=== PATIENT | female | born 1960 | race Caucasian/White ===

== ENCOUNTER → 2018-03-22 08:41 | Outpatient (CLI) | payer MEDICARE, MEDICAID, SELFPAY | PROVIDERS: Family Provider Internal Medicine; PCP Internal Medicine; Visit Provider Registered Nurse | DX: B37.9 Candidiasis, unspecified (principal); B20 Human immunodeficiency virus [HIV] disease | CPT/HCPCS: 36415; 87040; 87102; 87449 ==

== ENCOUNTER → 2018-06-05 10:57 | Outpatient (CLI) | payer MEDICARE, MEDICAID, SELFPAY ==
[2018-06-05 11:29] LABS: Bacteria Urine None Seen; RBC Urine None Seen (0-5/HPF); WBC Urine None Seen (0-5/HPF)
[2018-06-05 12:16] LABS: Add Manual Diff / Slide Review NO; Appearance Urine UA CLEAR; Basophils Percent Auto 0.9 % (0-2); Bilirubin Urine UA NEGATIVE (NEGATIVE); Color Urine UA YELLOW; Eosinophils Percent Auto 0.4 % (2-4); Glucose Urine UA NEGATIVE (Normal); Hematocrit 46.1 % (36-46); Hemoglobin 15.2 g/dL (12.0-16.0); Ketones Urine UA NEGATIVE (NEGATIVE); Leukocyte Esterase Urine UA NEGATIVE (NEGATIVE); Lymphocytes Percent Auto 33.9 % (25-40); Mean Corpuscular HGB Conc 33.1 % (30-36); Mean Corpuscular Hemoglobin 31.4 PG (26-34); Mean Corpuscular Volume 94.9 fL (80-100); Monocytes Percent Auto 7.7 % (3-14); Neutrophils Absolute Auto 3600 /uL (1500-7000); Neutrophils Percent Auto 57.1 % (50-75); Nitrite Urine UA NEGATIVE (Negative); Occult Blood Urine UA NEGATIVE (Negative); Platelet Count 278 X10^3/uL (150-400); Protein Urine UA NEGATIVE (Negative); Red Blood Cell Count 4.85 X10^6/uL (4.0-5.2); Red Cell Distribution Width 13.7 % (11.6-14.8); Urobilinogen Urine UA 0.2 E.U./dL (0.2); White Blood Cell Count 6.4 X10^3/uL (4.5-11.0); pH Urine UA 6.5 (4.5-8.0)
[2018-06-05 12:59] LABS: Alanine Aminotransferase 22 IU/L (9-52); Albumin Globulin Ratio 1.7 (1.0-2.8); Alkaline Phosphatase 75 U/L (38-126); Aspartate Aminotransferase 27 IU/L (14-36); Bilirubin Total 0.3 mg/dL (0.2-1.3); Blood Urea Nitrogen 11 mg/dL (7-17); Calcium 10.1 mg/dL (8.4-10.2); Carbon Dioxide 21 mmol/L (22-32); Chloride 105 mmol/L (98-107); Estimated Glomerular Filt Rate 56.7 mL/min (>60); Glucose 110 mg/dL (70-100); HEMOLYSIS < 15 (0-50); Sodium 142 mmol/L (137-145)
[2018-06-05 13:42] LABS: Urine N gonorrhoeae NOT DETECTED
[2018-06-05 13:58] LABS: Urine Chlamydia NOT DETECTED
[2018-06-05 14:32] LABS: Hepatitis B Surface Antigen NEGATIVE s/c (NEGATIVE)
[2018-06-05 15:17] LABS: Hep C Virus Ab w/Reflex Quant NEGATIVE s/c (NEGATIVE)
[2018-06-06 14:57] LABS: Hepatitis B Core Antibody Nonreactive (Nonreactive)
[2018-06-07 18:40] LABS: RPR Screen Nonreactive (Nonreactive)
== END ==
PROVIDERS: Family Provider Internal Medicine; PCP Internal Medicine; Visit Provider Internal Medicine Infectious Disease
DX: B37.9 Candidiasis, unspecified (principal); B20 Human immunodeficiency virus [HIV] disease
CPT/HCPCS: 36415; 80053; 81001; 85025; 86360; 86592; 86704; 86708; 86803; 87015; 87045; 87086; 87102; 87340; 87427; 87491; 87536; 87591; 87899

== ENCOUNTER 2018-07-17 10:56 | Emergency (ER) | payer MEDICARE, MEDICAID, SELFPAY ==
[2018-07-17 11:08] VITALS: BP 141/89; PULSE 85; RESP 18; TEMP 37.2; O2SAT 97; BMI 25.8
[2018-07-17 11:30] VITALS: BP 129/99; PULSE 73; RESP 16; O2SAT 95
--- NOTE | 2018-07-17 11:34 | ED.ALLEREA ---
HPI - Allergic Reaction General Chief complaint: Abdominal Pain Stated complaint: DRUG REACTION Time Seen by Provider: 07/17/18 11:20 History of Present Illness HPI narrative: Patient is a 58-year-old female who has history of HIV and presents from multiple complaints. She has had abdominal discomfort diarrhea sometimes bloody but now resolved some nausea. She was recently put on posaconazole oral candidiasis she feels like her symptoms are result of this medication. She says that she is taking a long time to get a diagnosis in to get put on a medication now she feels like she is having a reaction to it. The pharmacist told her to come to the ER. She has not had any bloody stool for 1 week her diarrhea has improved she has no rash no difficulty breathing or talking. She has not had any fever. Related Data Home Medications Medication Instructions Recorded Confirmed darunavir ethanolate [Prezista] 600 mg PO BID #0 01/06/13 07/17/18 methylphenidate HCl [Ritalin] 20 mg PO TID #0 01/06/13 07/17/18 topiramate [Topamax] 100 mg PO BEDTIME #0 05/04/16 07/17/18 dexlansoprazole [Dexilant] 30 mg PO BID #0 09/20/16 07/17/18 diazepam 10 mg PO TID PRN #0 09/20/16 07/17/18 rosuvastatin 10 mg PO DAILY #0 01/17/17 07/17/18 Disabled [address]ing Permit 1 ea MISCELLANEOUS PRN 07/17/18 07/17/18 atenolol 25 - 50 mg PO DAILY 07/17/18 07/17/18 escitalopram oxalate 40 mg PO DAILY 07/17/18 07/17/18 mupirocin 1 applic TOPICAL TID PRN 07/17/18 07/17/18 prazosin 10 mg PO BEDTIME 07/17/18 07/17/18 raltegravir [Isentress] 400 mg PO Q12H 07/17/18 07/17/18 ritonavir [Norvir] 100 mg PO BID 07/17/18 07/17/18 sumatriptan 2 spray INTRANASAL Q2H PRN 07/17/18 07/17/18 Previous Rx's Medication Instructions Recorded fluconazole 200 mg PO DAILY #14 tab 07/17/18 Allergies Allergy/AdvReac Type Severity Reaction Status Date / Time Tetracyclines [TETRACYCLINES] Allergy Severe CRITICAL Verified 07/17/18 11:08 BLOODY DIARRHEA, BLOODY VOMIT morphine [MORPHINE] AdvReac Unknown ITCHING Verified 07/17/18 11:08 Review of Systems Review of Systems ROS Unobtainable: All systems reviewed & are unremarkable except as noted in HPI and below Constitutional Denies chills, Denies fever(s), Denies lethargy and Denies weakness Cardiovascular Denies chest pain, Denies irregular heart rhythm, Denies lightheadedness, Denies palpitations, Denies dyspnea, Denies dyspnea on exertion and Denies orthopnea Respiratory Denies cough, Denies dyspnea, Denies dyspnea on exertion and Denies wheezing Gastrointestinal Gastrointestinal: Reports as per HPI Genitourinary Denies hematuria, Denies flank pain, Denies urinary incontinence and Denies urinary urgency Musculoskeletal Denies back pain, Denies muscle weakness, Denies numbness and Denies tingling Integumentary/Breasts Denies pruritus, Denies erythema, Denies rash and Denies wounds Neurologic Denies confusion, Denies numbness, Denies tingling and Denies weakness Psychiatric Denies anxiety, Denies confusion, Denies depression, Denies homicidal ideation and Denies suicidal ideation Endocrine Denies palpitations Allergic/Immunologic Denies wheezing PFSH Medical History HIV (human immunodeficiency virus infection) (Acute) Hyperlipidemia (Acute) Kidney stones (Acute) Parkinsons (Acute) Splenic artery aneurysm (Acute) Exam Initial Vital Signs Initial Vital Signs: Vital Signs Temperature 98.9 F 07/17/18 11:08 Pulse Rate 85 07/17/18 11:08 Respiratory Rate 18 07/17/18 11:08 Blood Pressure 141/89 H 07/17/18 11:08 Pulse Oximetry 97 07/17/18 11:08 GENERAL: Alert well-appearing anxious female HEENT: Head atraumatic,EOMI, pupils reactive, CARDIOVASCULAR: Regular rate and rhythm without murmurs, rubs or gallops. RESPIRATORY: Breath sounds equal bilaterally, no wheezes rales or rhonchi. ABDOMEN: Soft, nontender. Normoactive bowel sounds all 4 quadrants. No guarding or rebound. : No CVA tenderness EXTREMITIES: Normal range of motion, no clubbing or edema. Neurovascularly intact NEUROLOGICAL: Alert and oriented x4.Normal gait and speech. Cranial nerves II through XII grossly intact. SKIN: Warm, dry, no laceration, no petechiae, no rashes or lesions. Course Orders Ordered: Discontinued Medications Sodium Chloride (Normal Saline 0.9%) 1,000 mls @ 1,000 mls/hr IV CONT KATHARINA Last Infusion: 07/17/18 13:19 Dose: 0 mls/hr Admin: 07/17/18 12:12 Dose: 1,000 mls/hr Vital Signs - 8 hr 07/17/18 11:08 07/17/18 11:30 07/17/18 12:00 Temperature 98.9 F Pulse Rate 85 73 66 Respiratory Rate 18 16 15 Blood Pressure 141/89 H Blood Pressure [Right Arm] 129/99 H 124/83 Pulse Oximetry 97 95 93 07/17/18 12:30 07/17/18 13:00 Temperature Pulse Rate 65 53 L Respiratory Rate 18 13 Blood Pressure Blood Pressure [Right Arm] 103/74 124/89 Pulse Oximetry 96 96 MDM - Allergic Reaction Lab Data Attestation: I reviewed the patient's lab results. Result diagrams: 07/17/18 11:45 07/17/18 11:45 Lab Results 07/17/18 07/17/18 Range/Units 11:45 11:45 WBC 5.1 (4.5-11.0) X10^3/uL RBC 4.54 (4.0-5.2) X10^6/uL Hgb 14.0 (12.0-16.0) g/dL Hct 43.0 (36-46) % MCV 94.8 (80-100) fL MCH 30.8 (26-34) PG MCHC 32.5 (30-36) % RDW 14.4 (11.6-14.8) % Plt Count 252 (150-400) X10^3/uL Neut % (Auto) 63.9 (50-75) % Lymph % (Auto) 27.0 (25-40) % [place] % (Auto) 7.6 (3-14) % Eos % (Auto) 0.5 L (2-4) % Baso % (Auto) 1.0 (0-2) % Neut # (Auto) 3300 (2319-7688) /uL Lymph # (Auto) 1400 (0457-9041) /uL [place] # (Auto) 400 (0-900) /uL Eos # (Auto) 0 (0-450) /uL Baso # (Auto) 0 (0-100) /uL Sodium 138 (137-145) mmol/L Potassium 4.8 (3.4-5.1) mmol/L Chloride 106 (98-107) mmol/L Carbon Dioxide 21 L (22-32) mmol/L BUN 11 (7-17) mg/dL Creatinine 0.90 (0.52-1.04) mg/dL Estimated GFR > 60.0 (>60) mL/min BUN/Creatinine Ratio 12.2 (6-22) Glucose 98 (70-100) mg/dL Calcium 9.8 (8.4-10.2) mg/dL Total Bilirubin 0.7 (0.2-1.3) mg/dL AST 38 H (14-36) IU/L ALT 21 (9-52) IU/L Alkaline Phosphatase 57 (38-126) U/L Total Protein 7.9 (6.3-8.2) g/dL Albumin 4.7 (3.5-5.0) g/dL Globulin 3.2 (1.7-4.1) g/dL Albumin/Globulin Ratio 1.5 (1.0-2.8) Lipase 94 (23-300) U/L MDM Narrative Medical decision making narrative: It is very difficult to say if her bloody diarrhea is a reaction from the medication. She no longer is having bloody diarrhea blood work is within normal limits. She actually does have a sensitivity form of her candidiasis. She was previously on fluconazole it looks as though fluconazole was sensitive. For some reason she was changed this other medication. Patient is demanding a new medication. I will put her back on fluconazole, though I strongly recommended that she follow up with the doctor who started her on the medication. I feel there is some reason that medication switched. Discharge Plan Departure Patient Disposition: Home Clinical Impression: Adverse drug reaction Discharge Date/Time: 07/17/18 13:19 Interventions: ED Discharge Assessment Last Done: 07/17/18 13:19 Instructions: DI for Adverse Drug Reaction-Child Activity Restrictions/Additional Instructions: *You have been diagnosed with drug reaction *What to do: Please speak with your doctor about new medication regarding your yeast infection. There are likely reasons other medications were not started. *Continue to take medications as directed *Follow up with your primary care provider in 2-3 days *Return to ER if you should have any new, worsening or concerning symptoms Prescriptions: New fluconazole 200 mg tablet 200 mg PO DAILY Qty: 14 RF: 0 No Action darunavir ethanolate [Prezista] 600 MG tablet 600 mg PO BID Qty: 0 RF: 0 methylphenidate HCl [Ritalin] 20 MG tablet 20 mg PO TID Qty: 0 RF: 0 topiramate [Topamax] 100 MG tablet 100 mg PO BEDTIME Qty: 0 RF: 0 diazepam 10 MG tablet 10 mg PO TID PRN (Reason: Anxiety) Qty: 0 RF: 0 dexlansoprazole [Dexilant] 30 MG capsule,biphase delayed releas 30 mg PO BID Qty: 0 RF: 0 rosuvastatin 10 MG tablet 10 mg PO DAILY Qty: 0 RF: 0 mupirocin 2 % ointment 1 applic Topical TID PRN (Reason: unknown) RF: 0 atenolol 50 mg tablet 25 - 50 mg PO DAILY RF: 0 escitalopram oxalate 20 mg tablet 40 mg PO DAILY RF: 0 raltegravir [Isentress] 400 mg tablet 400 mg PO Q12H RF: 0 ritonavir [Norvir] 100 mg tablet 100 mg PO BID RF: 0 sumatriptan 5 mg/actuation spray,non-aerosol 2 spray Intranasal Q2H PRN (Reason: Migraine Headache) RF: 0 prazosin 5 mg capsule 10 mg PO BEDTIME RF: 0 Disabled Parking Permit 1 ea miscellaneous PRN RF: 0 Referrals: Jordan Isabel ARNP [Primary Care Provider] -
[2018-07-17 11:52] LABS: Add Manual Diff / Slide Review NO; Basophils Absolute Auto 0 /uL (0-100); Eosinophils Absolute Auto 0 /uL (0-450); Eosinophils Percent Auto 0.5 % (2-4); Lymphocytes Absolute Auto 1400 /uL (1100-4500); Mean Corpuscular HGB Conc 32.5 % (30-36); Mean Corpuscular Hemoglobin 30.8 PG (26-34); Mean Corpuscular Volume 94.8 fL (80-100); Monocytes Absolute Auto 400 /uL (0-900); Monocytes Percent Auto 7.6 % (3-14); Neutrophils Absolute Auto 3300 /uL (1500-7000); Neutrophils Percent Auto 63.9 % (50-75); Platelet Count 252 X10^3/uL (150-400); Red Blood Cell Count 4.54 X10^6/uL (4.0-5.2); Red Cell Distribution Width 14.4 % (11.6-14.8); White Blood Cell Count 5.1 X10^3/uL (4.5-11.0)
[2018-07-17 12:00] VITALS: BP 124/83; PULSE 66; RESP 15; O2SAT 93
[2018-07-17 12:05] LABS: Alanine Aminotransferase 21 IU/L (9-52); Albumin 4.7 g/dL (3.5-5.0); Albumin Globulin Ratio 1.5 (1.0-2.8); Alkaline Phosphatase 57 U/L (38-126); Aspartate Aminotransferase 38 IU/L (14-36); BUN Creatinine Ratio 12.2 (6-22); Bilirubin Total 0.7 mg/dL (0.2-1.3); Blood Urea Nitrogen 11 mg/dL (7-17); Calcium 9.8 mg/dL (8.4-10.2); Carbon Dioxide 21 mmol/L (22-32); Chloride 106 mmol/L (98-107); Estimated Glomerular Filt Rate > 60.0 mL/min (>60); Globulin 3.2 g/dL (1.7-4.1); Glucose 98 mg/dL (70-100); HEMOLYSIS 116 (0-50); Lipase 94 U/L (23-300); Potassium 4.8 mmol/L (3.4-5.1); Sodium 138 mmol/L (137-145); Total Protein 7.9 g/dL (6.3-8.2)
[2018-07-17] MEDS: SODIUM CHLORIDE 0.9% 1,000 ML 1000 ML IV (12:12)
[2018-07-17 12:30] VITALS: BP 103/74; PULSE 65; RESP 18; O2SAT 96
[2018-07-17 13:00] VITALS: BP 124/89; PULSE 53; RESP 13; O2SAT 96
== END 2018-07-17 13:19 | disposition home or self-care (01) ==
PROVIDERS: Emergency Provider Emergency Medicine; Family Provider Registered Nurse; PCP Registered Nurse
DX: T50.905A Adverse effect of unspecified drugs, medicaments and biological substances, initial encounter (principal)
CPT/HCPCS: 36591; 80053; 83690; 85025; 96360; 99283; 99284

== ENCOUNTER 2018-09-25 09:24 | Emergency (ER) | payer MEDICARE, MEDICAID, SELFPAY ==
--- NOTE | 2018-09-25 09:46 | ED.GENADULT ---
HPI - General Adult General Chief complaint: Urogenital-Female Stated complaint: dizziness, off balance, bladder pain, fungal infec Time Seen by Provider: 09/25/18 09:31 Source: patient Mode of arrival: ambulatory Limitations: no limitations History of Present Illness HPI narrative: Patient is a 58-year-old female who is HIV positive. She states that her last viral load was undetectable and her CD4 count was 500. Here for multiple medical problems however the main reason that she is here today is because she has been having pain around her urethra and also fullness in her bladder. She states that she has had urinary tract infections and kidney stones in the past but this is not of those diagnoses. Patient somewhat difficult to obtain a history from however after multiple questioning it does appear that she is here specifically because of the irritation around the urethra and bladder fullness. Related Data Home Medications Medication Instructions Recorded Confirmed darunavir ethanolate [Prezista] 600 mg PO BID #0 01/06/13 07/17/18 methylphenidate HCl [Ritalin] 20 mg PO TID #0 01/06/13 07/17/18 topiramate [Topamax] 100 mg PO BEDTIME #0 05/04/16 07/17/18 dexlansoprazole [Dexilant] 30 mg PO BID #0 09/20/16 07/17/18 diazepam 10 mg PO TID PRN #0 09/20/16 07/17/18 rosuvastatin 10 mg PO DAILY #0 01/17/17 07/17/18 Disabled Parking Permit 1 ea MISCELLANEOUS PRN 07/17/18 07/17/18 atenolol 25 - 50 mg PO DAILY 07/17/18 07/17/18 escitalopram oxalate 40 mg PO DAILY 07/17/18 07/17/18 mupirocin 1 applic TOPICAL TID PRN 07/17/18 07/17/18 prazosin 10 mg PO BEDTIME 07/17/18 07/17/18 raltegravir [Isentress] 400 mg PO Q12H 07/17/18 07/17/18 ritonavir [Norvir] 100 mg PO BID 07/17/18 07/17/18 sumatriptan 2 spray INTRANASAL Q2H PRN 07/17/18 07/17/18 Previous Rx's Medication Instructions Recorded fluconazole 200 mg PO DAILY #14 tab 07/17/18 lidocaine 1 applictn TOP BID-QID PRN #30 gram 09/25/18 Allergies Allergy/AdvReac Type Severity Reaction Status Date / Time Tetracyclines [TETRACYCLINES] Allergy Severe CRITICAL Verified 07/17/18 11:08 BLOODY DIARRHEA, BLOODY VOMIT morphine [MORPHINE] AdvReac Unknown ITCHING Verified 07/17/18 11:08 Review of Systems Constitutional Denies fever(s) Genitourinary Denies urinary frequency, Denies difficulty voiding, Reports dysuria, Denies urinary incontinence, Denies urinary hesitancy and Denies urinary urgency Comments: Urethral irritation Bladder fullness, Musculoskeletal Denies myalgias and Denies arthralgias Integumentary/Breasts Denies rash Allergic/Immunologic Denies urticaria [facility] Medical History HIV (human immunodeficiency virus infection) (Acute) Hyperlipidemia (Acute) Kidney stones (Acute) Parkinsons (Acute) Splenic artery aneurysm (Acute) Social History Smoking Status: Never smoker Social History Smoking Status: Never smoker Exam Initial Vital Signs Initial Vital Signs: Vital Signs Temperature 98.0 F 09/25/18 09:53 Pulse Rate 91 H 09/25/18 09:53 Respiratory Rate 20 09/25/18 09:53 Blood Pressure 122/72 09/25/18 09:53 Pulse Oximetry 97 09/25/18 09:53 Const General: cooperative, well developed, well groomed and No acute distress Orientation: alert, awake and oriented x3 Resp Effort & Inspection: normal respiratory effort Other: Normal external female genitalia No redness around the area. Does have what appears to be a bladder prolapse. No redness around the urethral opening. Skin Lesions: no lesions Rashes: no rashes Wounds: no wounds Neuro General: alert, awake and oriented x3 Gait: normal gait Extrem General: capillary refill normal Psych Appearance: grossly normal and well kempt Course Vital Signs - 8 hr 09/25/18 09:53 09/25/18 10:49 Temperature 98.0 F Pulse Rate 91 H 68 Respiratory Rate 20 16 Blood Pressure 122/72 Blood Pressure [Right Arm] 106/62 Pulse Oximetry 97 99 Medical Decision Making MDM Narrative Medical decision making narrative: Patient states that her symptoms today are not the result of a urinary tract infection or kidney stone because she has had these before and this does not feel like that. I do believe that the fullness in her bladder in the irritation or secondary to her bladder prolapse which is seen on the exam. Informed her that she needed to contact her primary care doctor to discuss referral to see gynecology. Will send home with lidocaine jelly. She states that she has used this in the past and has helped. No indication for antibiotics or antifungal medications. Patient was given return precautions. She expressed understanding and agreement with plan. Discharge Plan Departure Patient Disposition: Home Clinical Impression: Bladder prolapse Instructions: Cystocele/Rectocele Activity Restrictions/Additional Instructions: I recommend that you may contact with her new primary care doctor and discuss the indications for referral to see gynecology for what I feel like is a bladder prolapse. Until then you can use the lidocaine jelly as needed. Continue all of her other medications. Return to the emergency department for any new or worsening symptoms Prescriptions: New lidocaine 5 % ointment 1 applictn TOP BID-QID PRN (Reason: skin irritation) Qty: 30 RF: 0 No Action darunavir ethanolate [Prezista] 600 MG tablet 600 mg PO BID Qty: 0 RF: 0 methylphenidate HCl [Ritalin] 20 MG tablet 20 mg PO TID Qty: 0 RF: 0 topiramate [Topamax] 100 MG tablet 100 mg PO BEDTIME Qty: 0 RF: 0 diazepam 10 MG tablet 10 mg PO TID PRN (Reason: Anxiety) Qty: 0 RF: 0 dexlansoprazole [Dexilant] 30 MG capsule,biphase delayed releas 30 mg PO BID Qty: 0 RF: 0 rosuvastatin 10 MG tablet 10 mg PO DAILY Qty: 0 RF: 0 mupirocin 2 % ointment 1 applic Topical TID PRN (Reason: unknown) RF: 0 atenolol 50 mg tablet 25 - 50 mg PO DAILY RF: 0 escitalopram oxalate 20 mg tablet 40 mg PO DAILY RF: 0 raltegravir [Isentress] 400 mg tablet 400 mg PO Q12H RF: 0 ritonavir [Norvir] 100 mg tablet 100 mg PO BID RF: 0 sumatriptan 5 mg/actuation spray,non-aerosol 2 spray Intranasal Q2H PRN (Reason: Migraine Headache) RF: 0 prazosin 5 mg capsule 10 mg PO BEDTIME RF: 0 Disabled Parking Permit 1 ea miscellaneous PRN RF: 0 fluconazole 200 mg tablet 200 mg PO DAILY Qty: 14 RF: 0 Referrals: Jordan Isabel ARNP [Primary Care Provider] -
[2018-09-25 09:53] VITALS: BP 122/72; PULSE 91; RESP 20; TEMP 36.7; O2SAT 97
[2018-09-25 10:49] VITALS: BP 106/62; PULSE 68; RESP 16; O2SAT 99
== END 2018-09-25 11:14 | disposition home or self-care (01) ==
PROVIDERS: Emergency Provider Emergency Medicine; PCP Registered Nurse
DX: N81.10 Cystocele, unspecified (principal); R42 Dizziness and giddiness
CPT/HCPCS: 93005; 93010; 99282; 99283

== ENCOUNTER → 2018-10-21 06:53 | Outpatient (CLI) | payer MEDICARE, MEDICAID, SELFPAY ==
--- NOTE | 2018-10-21 | DI.US.S_ITS ---
PROCEDURE: US PELVIC COMPLETE INDICATIONS: UTERINE FIBROIDS TECHNIQUE: Real-time scanning was performed of the pelvic organs, with image documentation. Additional endovaginal scanning was necessary due to incomplete visualization of the adnexal and endometrial structures by transabdominal scanning. COMPARISON: [facility], CT, ABDOMEN/PELVIS WITH CONTRAST, 03/13/2016, 13:44. [facility], US, PELVIC COMPLETE, 07/29/2014, 15:06. FINDINGS: Transabdominal scanning: Limited scanning through the kidneys shows no hydronephrosis. No pathologic free abdominal or pelvic fluid. The uterus is retroverted and not evaluated by transabdominal imaging. No suspicious adnexal masses. Endovaginal scanning: Uterus: Uterus is normal in size at 6.0 x 4.5 x 5.9 cm. The endometrium measures 4.6 mm in combined thickness. Large dominant uterine masses, one measuring 3.1 x 2.7 x 3.1 cm in the left anterior myometrium, and the other measuring 1.8 x 1.4 x 1.4 cm in the right myometrium. The cervix appears normal. Ovaries: The left ovary was not seen. The right ovary measures 2.6 cm and contains a dominant follicle measuring 1.0 cm. IMPRESSION: 1. Fibroid uterus without significant enlargement since the previous ultrasound. 2. Simple simple right ovarian follicle. 3. Left ovary not identified, but no suspicious left adnexal mass. Dictated by: Malina Leo M.D. on 10/21/2018 at 9:07 Approved by: Malina Leo M.D. on 10/21/2018 at 9:17
== END ==
PROVIDERS: Visit Provider Family Medicine
DX: D25.9 Leiomyoma of uterus, unspecified (principal); N83.291 Other ovarian cyst, right side
CPT/HCPCS: 76830; 76856

== ENCOUNTER → 2019-02-05 10:46 | Outpatient (CLI) | payer MEDICARE, MEDICAID, SELFPAY | PROVIDERS: PCP Internal Medicine; Visit Provider Obstetrics & Gynecology | DX: N89.8 Other specified noninflammatory disorders of vagina (principal) | CPT/HCPCS: 87070; 87077; 87186; 87205 ==

== ENCOUNTER → 2019-02-06 07:41 | Outpatient (CLI) | payer MEDICARE, MEDICAID, SELFPAY ==
--- NOTE | 2019-02-06 | DI.MG.S_ITS ---
BILATERAL DIGITAL SCREENING MAMMOGRAM 3D/2D WITH CAD: 02/06/2019 CLINICAL: Routine screening. Comparison is made to exams dated: 03/09/2017 mammogram, 11/12/2015 mammogram - [facility], and 09/18/2013 mammogram - [facility]. The tissue of both breasts is heterogeneously dense. This may lower the sensitivity of mammography. Current study was also evaluated with a Computer Aided Detection (CAD) system. There is a benign biopsy clip in the left breast. No significant masses, calcifications, or other findings are seen in either breast. There has been no significant interval change. IMPRESSION: NEGATIVE There is no mammographic evidence of malignancy. A 1 year screening mammogram is recommended. This exam was interpreted at Station ID: [id number]. NOTE: For mammograms, a report in lay terms will be sent to the patient. Approximately 15% of breast malignancies will not be visualized mammographically. In the management of a palpable breast mass, a negative mammogram must not discourage biopsy of a clinically suspicious lesion. Electronically Signed By: Ramirez fuentes/jef:02/06/2019 11:19:05 copy to: Oswald CASILLAS letter sent: Normal Exam ACR BI-RADS Category 1: Negative [id number]
[2019-02-06 09:59] LABS: Alanine Aminotransferase 15 IU/L (9-52); Aspartate Aminotransferase 29 IU/L (14-36); BUN Creatinine Ratio 14.2 (6-22); Blood Urea Nitrogen 17 mg/dL (7-17); Calcium 10.8 mg/dL (8.4-10.2); Carbon Dioxide 20 mmol/L (22-32); Chloride 106 mmol/L (98-107); Glucose 141 mg/dL (70-100); HEMOLYSIS < 15 (0-50); Magnesium 1.9 mg/dL (1.6-2.3); Phosphorous 3.7 mg/dL (2.5-4.5); Potassium 3.8 mmol/L (3.4-5.1); Sodium 142 mmol/L (137-145); Triglycerides 179 mg/dL (35-150)
[2019-02-06 10:43] LABS: TSH w/ Reflex to FT4 0.46 uIU/mL (0.47-4.68)
[2019-02-06 13:11] LABS: HDL Cholesterol 71 mg/dL (40-60)
[2019-02-06 13:24] LABS: Free T4, Direct Thyroxine 1.07 ng/dL (0.78-2.19)
[2019-02-06 13:59] LABS: Cholesterol 364 mg/dL (140-199); LDL Cholesterol Calculated 257 mg/dL (<100)
[2019-02-21 10:48] LABS: Specimen Source Kidney
== END ==
PROVIDERS: PCP Internal Medicine; Visit Provider Internal Medicine
DX: Z12.31 Encounter for screening mammogram for malignant neoplasm of breast (principal); N20.0 Calculus of kidney; E78.00 Pure hypercholesterolemia, unspecified; E04.2 Nontoxic multinodular goiter
CPT/HCPCS: 36415; 77063; 77067; 80048; 80061; 82365; 83735; 84100; 84439; 84443; 84450; 84460

== ENCOUNTER → 2019-02-19 07:38 | Outpatient (CLI) | payer MEDICARE, MEDICAID, SELFPAY ==
--- NOTE | 2019-02-19 | DI.US.S_ITS ---
PROCEDURE: US THYROID INDICATIONS: THYROID NODULE TECHNIQUE: Real-time scanning was performed of the thyroid gland, with image documentation. COMPARISON: [facility], US, THYROID, 11/01/2015, 8:05. FINDINGS: Right: Thyroid lobe measures 6.1 x 1.9 x 1.8 cm, and is homogeneous in echotexture. Left: Thyroid lobe measures 6.1 x 1.9 x 1.6 cm, and is homogenous in echotexture. Isthmus: 9.0 mm thick. Nodule number: 1 Location: Right mid Size: Unchanged 1.2 x 0.9 x 0.6 cm. Composition: Solid Echogenicity: Hypoechoic Shape: Wider than tall Margins: Irregular Echogenic foci: Internal punctate echogenic foci Total points: 7 ACR TI-RADS category: Highly suspicious Nodule number: 2 Location: Right inferior Size: Similar 1.5 x 1.0 x 0.6 cm. Composition: Solid Echogenicity: Hypoechoic Shape: wider than tall. Margins: Irregular Echogenic foci: Punctate echogenic foci Total points: 7 ACR TI-RADS category: Highly suspicious Nodule number: 3 Location: Right inferior Size: Unchanged at 1.1 x 1.1 x 0.7 cm. Composition: Predominantly solid Echogenicity: Hypoechoic Shape: wider than tall. Margins: Smooth Echogenic foci: Echogenic punctate foci Total points: 7 ACR TI-RADS category: Highly suspicious Nodule number: 4 Location: Isthmus Size: Unchanged 1.3 x 1.0 x 0.8 cm. Composition: Predominantly solid Echogenicity: Hypoechoic Shape: wider than tall. Margins: Smooth Echogenic foci: Echogenic punctate foci Total points: 7 ACR TI-RADS category: Highly suspicious Nodule number: 5 Location: Left inferior Size: Decrease in size at 1.0 1.0 x 0.8 cm. Composition: Predominantly solid Echogenicity: Hypoechoic Shape: wider than tall. Margins: Smooth Echogenic foci: Internal punctate echogenic foci Total points: 7 ACR TI-RADS category: Highly suspicious Nodule number: 6 Location: Left mid Size: Unchanged at 0.8 x 0.8 x 0.6 cm. Composition: Predominantly solid Echogenicity: Hypoechoic Shape: wider than tall. Margins: Smooth Echogenic foci: Internal punctate echogenic foci Total points: 7 ACR TI-RADS category: Highly suspicious Nodule number: 7 Location: Left mid Size: 1.0 x 0.7 x 0.5 Composition: Predominantly cystic Echogenicity: Hypoechoic Shape: wider than tall. Margins: Smooth Echogenic foci: None Total points: 2 ACR TI-RADS category: Not suspicious IMPRESSION: Stable appearance of bilateral thyroid nodules. Recommend continued followup ultrasound as detailed below. ACR TI-RADS definitions and recommendations: TI-RADS 1 (benign): 0 points. FNA not needed. TI-RADS 2 (not suspicious): 2 points. FNA not needed. TI-RADS 3 (mildly suspicious): 3 points. * FNA if 2.5 cm or larger, follow up if 1.5 cm or larger (at 1, 3, and 5 years). TI-RADS 4 (moderately suspicious): 4-6 points. * FNA if 1.5 cm or larger, follow up if 1 cm or larger (at 1, 2, 3, and 5 years). TI-RADS 5 (highly suspicious): 7 points or more. * FNA if 1 cm or larger, follow up if 0.5 cm or larger (every year for 5 years). Dictated by: Len Carrillo [facility] Interpreted: Haley Amado MD on 02/19/2019 at 10:31 Approved by: Haley Amado MD, PhD on 02/19/2019 at 13:37
--- NOTE | 2019-02-19 | DI.US.S_ITS ---
PROCEDURE: US RENAL COMPLETE INDICATIONS: ACUTE KIDNEY INJURY TECHNIQUE: Real-time scanning was performed of the kidneys and bladder, with image documentation. COMPARISON: [facility], CT, ABDOMEN WITH CONTRAST, 07/30/2017, 10:54. FINDINGS: Kidneys: Kidneys are normal in size. Right kidney measures 12.4 cm long; left kidney measures 1.4 cm long. Right renal cortical thickness is 12.9 cm; left renal cortical thickness is 1.6 cm. Renal cortical echotexture is normal. No hydronephrosis. There is several shadowing echogenic foci involving the right and left kidney which may represent small nonobstructing stones. Bladder: Pre-void bladder volume is 86 mL. Post-void residual is 2 mL. Pre-void images demonstrate no intraluminal masses or stones. On pre-void images, bilateral ureteral jets are noted with color Doppler interrogation. (Of note, ureteral jets may not be detectable in up to 25% of cases due to insufficient differences in specific gravity between ureteral and bladder urine). Miscellaneous: No free pelvic fluid. IMPRESSION: 1. Several shadowing echogenic foci bilaterally which may represent small nonobstructing renal calcifications. If indicated, CT KUB could be performed. Dictated by: Len SANCHEZ Interpreted: Haley Amado MD on 02/19/2019 at 10:26 Approved by: Haley Amado MD, PhD on 02/19/2019 at 13:37
== END ==
PROVIDERS: PCP Internal Medicine; Visit Provider Internal Medicine
DX: N17.9 Acute kidney failure, unspecified (principal); E04.2 Nontoxic multinodular goiter
CPT/HCPCS: 76536; 76770

== ENCOUNTER 2019-02-20 08:23 | Day surgery (SDC) | payer MEDICARE, MEDICAID, SELFPAY ==
--- NOTE | 2019-02-20 | PATH_ITS ---
[facility] Accession Number: [id number] . 01 Material submitted: . PART A: esophagus, E-G Junction - GE JUNCTION BIOPSY PART B: duodenum - DUODENAL BIOPSIES PART C: ileum - TERMINAL ILEUM BIOPSY PART D: colon - RANDOM COLON BIOPSIES . 01 Clinical history: . NONINFECTIVE GASTROENTERITIS AND COLITIS, UNSPECIFIED A. RULE OUT ALFARO'S ESOPHAGUS B. RULE OUT CELIAC DISEASE . 02 Diagnosis: A. Gastroesophageal Junction, Biopsy: Squamocolumnar junctional mucosa with specialized intestinal metaplasia, consistent with Alfaro's esophagus. Negative for dysplasia or malignancy. . B. Duodenum, Biopsies: Small bowel mucosa with no diagnostic abnormality. Negative for active inflammation, features of sprue, dysplasia or malignancy. . C. Terminal Ileum, Biopsy: Ileal mucosa with no diagnostic abnormality. Negative for active inflammation, granulomata, dysplasia or malignancy. . D. Random Colon, Biopsies: Colonic mucosa with no diagnostic abnormality. Negative for active or microscopic colitis. Negative for granulomata, dysplasia or malignancy. [facility]/02/21/2019 . 02 Electronically signed: . Tong Castañeda MD, PhD, Pathologist NPI- [id number] . 01 Gross description: . Part A: GE JUNCTION BIOPSY: Received in formalin are multiple fragment(s) of porter, soft tissue measuring 0.1 x 0.1 x 0.1 cm to 0.2 x 0.2 x 0.1 cm which is entirely submitted and submitted entirely in 1 cassette(s) Part B: DUODENAL BIOPSIES: Received in formalin are multiple fragment(s) of porter, soft tissue measuring 0.1 x 0.1 x 0.1 cm to 0.4 x 0.3 x 0.2 cm which is entirely submitted and submitted entirely in 1 cassette(s) Part C: TERMINAL ILEUM BIOPSY: Received in formalin are 4 fragment(s) of porter, soft tissue measuring 0.1 x 0.1 x 0.1 cm to 0.4 x 0.2 x 0.2 cm which is entirely submitted and submitted entirely in 1 cassette(s) Part D: RANDOM COLON BIOPSIES: Received in formalin are multiple fragment(s) of porter, soft tissue measuring 0.1 x 0.1 x 0.1 cm to 0.3 x 0.3 x 0.2 cm which is entirely submitted and submitted entirely in 1 cassette(s) /[facility] . 02 Pathologist provided ICD-10: K22.70, R19.4 . 02 CPT . 141725, 000272, 701413, [id number] Performed at: 01 [facility] [address] [id number] MD Emiliano Delacruz MD Phone: [phone] Performed at: 02 [facility] [place] [address] [place], [place] [id number] MD Blossom Sheriff MD Phone: [phone]
[2019-02-20 08:57] VITALS: BP 157/88; PULSE 81; RESP 16; TEMP 35.9; O2SAT 81; BMI 26.6
[2019-02-20] MEDS: SODIUM CHLORIDE 0.9% 1,000 ML 200 ML IV (09:14)
--- NOTE | 2019-02-20 09:55 | PM.HP.1 ---
History of Present Illness History of Present Illness Date Patient Seen: 02/20/19 Time Patient Seen: 09:51 Chief complaint: [id number] Narrative: The patient is a woman who claims to have Gita throughout her GI tract. She is concerned it may be residual is stent to medication because the frequent use of Diflucan. She has chronic diarrhea unless she takes Diflucan and then it resolves only to return a month later. She does have HIV and is is reported to be at an undetectable level. She is here for an EGD and colonoscopy. Patient History Medical History HIV (human immunodeficiency virus infection) (Acute) Hyperlipidemia (Acute) Kidney stones (Acute) Parkinsons (Acute) Splenic artery aneurysm (Acute) Social History household members: none Smoking Status: Never smoker Family & Social History Social History: household members none Tobacco & Substance use: Smoking Status Never smoker Substance Use Type does not use Meds Home Medications and Allergies Home Medications Medication Instructions Recorded Confirmed Type Prezista 600 mg PO BID #0 01/06/13 02/20/19 History methylphenidate HCl [Ritalin] 20 mg PO TID #0 01/06/13 02/20/19 History topiramate [Topamax] 100 mg PO BEDTIME #0 05/04/16 02/20/19 History Dexilant 30 mg PO BID #0 09/20/16 02/20/19 History diazepam 10 mg PO TID PRN #0 09/20/16 02/20/19 History rosuvastatin 10 mg PO DAILY #0 01/17/17 02/20/19 History Disabled Parking Permit 1 ea MISCELLANEOUS PRN 07/17/18 02/20/19 History atenolol 25 - 50 mg PO DAILY 07/17/18 02/20/19 History escitalopram oxalate 40 mg PO DAILY 07/17/18 02/20/19 History fluconazole 200 mg PO DAILY #14 tab 07/17/18 02/20/19 Rx mupirocin 1 applic TOPICAL TID PRN 07/17/18 02/20/19 History prazosin 10 mg PO BEDTIME 07/17/18 02/20/19 History raltegravir [Isentress] 400 mg PO Q12H 07/17/18 02/20/19 History ritonavir [Norvir] 100 mg PO BID 07/17/18 02/20/19 History sumatriptan 2 spray INTRANASAL Q2H PRN 07/17/18 02/20/19 History CMP Estradiol 0.2% vaginal cream 0.5 gram VAGINAL 2XW #30 gram 02/05/19 02/20/19 Rx lidocaine 5 % topical ointment 1 applictn TOP BID-QID PRN #30 gram 02/05/19 02/20/19 Rx Allergies Allergy/AdvReac Type Severity Reaction Status Date / Time Tetracyclines [TETRACYCLINES] Allergy Severe CRITICAL Verified 02/20/19 08:45 BLOODY DIARRHEA, BLOODY VOMIT morphine [MORPHINE] AdvReac Unknown ITCHING Verified 02/20/19 08:45 Review of Systems Review of Systems ROS Unobtainable: All systems reviewed & are unremarkable except as noted in HPI and below Exam Vital Signs (past 8 hours): - 02/20/19 08:57 Temperature 96.6 F L Pulse Rate 81 Respiratory Rate 16 Blood Pressure 157/88 H Pulse Oximetry 81 L Oxygen Delivery Method Room Air Narrative Exam Narrative: Pleasant cooperative patient no apparent distress. Lungs are clear to auscultation. No rales or rhonchi. Heart regular rate and rhythm no murmur gallop. Abdomen is soft nontender without mass. No obvious hernias. Patient is alert and oriented x3. Assessment & Plan Assessment & Plan narrative: The patient for an EGD and colonoscopy. I have discussed the procedures with them. Risks of bleeding, perforation which would necessitate major operation, failure to find remove all lesions, the potential tattoo were all discussed. All questions were answered. They wished to proceed. We will obtain stool studies and biopsies for Gita.
--- NOTE | 2019-02-20 10:23 | PM.PREOP ---
Pre-operative Note Interval Note History & Physical reviewed/Exam performed by Physician: Yes Changes to H&P: No ASA Class (for procedural sedation): III
[2019-02-20] MEDS: LIDOCAINE 4% SOLN 50 ML 20 ML TOP (11:18)
--- NOTE | 2019-02-20 11:21 | PM.OP.ENDO ---
Operative Date/Time/Diagnoses Date of procedure: 02/20/19 Time of procedure: 11:21 Pre-op diagnosis: History of esophageal Gita. Reflux disease. Chronic diarrhea. Post-op diagnosis: same Procedure & Clinicians Study performed: EGD with cold biopsy. Colonoscopy with cold biopsy. Same procedure as scheduled: Yes Indications: Evaluate GI tract for cause of chronic diarrhea. Evaluate for reflux. Surgeon: Milad Cates Procedure Notes SCOAP/Timeout: Performed Procedure in detail: The patient had topical anesthetic applied to oropharynx. She was placed in left lateral decubitus position and underwent IV sedation directed by the surgeon consisting of fentanyl and Versed. A bite block was inserted and the scope was advanced through it into the esophagus. The esophagus was unremarkable until I reach the GE junction. GE junction was noted at 32 cm. There were tongues of red tissue extending above the GE junction suggestive of Locke's esophagus. The stomach insufflated with difficulty. There were no lesions seen in the body, antrum or at the incisura. The pyloric channel was patent. The duodenum was unremarkable to the 4th part. Because of the history of chronic diarrhea I took random biopsies in the duodenum to evaluate for celiac disease. The scope was brought back into the stomach and retroflexed. The proximal stomach appeared to have a large hiatal hernia though the actual hiatus was tight against the scope.. The scope was straightened and brought out through the esophagus again. Biopsies were taken at the GE junction. No other lesions were seen. There was no plaquing anywhere in the esophagus either red or white suggestive of inflammation or Gita. The scope was removed and the patient tolerated the procedure well. Attention was turned to the colon. The patient was repositioned in given additional sedation. The patient was placed in the left lateral decubitus position and underwent additional IV sedation directed by the surgeon consisting of fentanyl and Versed. Digital exam was unremarkable. The scope was inserted and advanced through the rectum into the sigmoid, descending, transverse, and ascending colon. A stiffener was inserted to enable us to reach this cecum.. The cecum was reached identified by the ileocecal valve and the appendiceal opening. The ileocecal valve was successfully cannulated. The terminal ileum was normal in appearance. I took random biopsies of the terminal ileum to rule out a subclinical process. The scope was gradually brought out. No Polyps were found. However I took random biopsies of the colon to rule out a subclinical process. The colon appeared to be normal however. The scope ultimately was retroflexed in the rectum. The appearance was remarkable for small internal hemorrhoids without ulceration.. The scope was removed and the patient tolerated the procedure well. Stool was submitted for O& P, culture, GI panel, fungal culture, and Gita. 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 Random colon and terminal ileum biopsies.) Complications: none Post-procedure Recommendations: Colonscopy in 10 years (For colon screening purposes) Follow up: as needed Disposition: PACU
[2019-02-20] MEDS: MIDAZOLAM 5 MG/5 ML VIAL IV (11:22)
[2019-02-20] MEDS: fentaNYL 250 MCG/5 ML INJ IV (11:23)
[2019-02-20] MEDS: diphenhydrAMINE 50 MG/ML VIAL IV (11:23)
[2019-02-20 11:26] VITALS: BP 115/76; PULSE 72; RESP 18; TEMP 36.6; O2SAT 99
[2019-02-20 11:32] VITALS: BP 110/76; PULSE 73; RESP 10; O2SAT 99
[2019-02-20 11:55] VITALS: BP 137/72; PULSE 77; RESP 18; TEMP 36.7; O2SAT 100
[2019-02-20 13:35] LABS: Adenovirus F 40/41 Not Detected (Not Detect); Astrovirus Not Detected (Not Detect); Clostridium difficile toxin AB Not Detected (Not Detect); Cryptosporidium Not Detected (Not Detect); Cyclospora cayetanensis Not Detected (Not Detect); Entamoeba histolytica Not Detected (Not Detect); Enteroaggregative E.coli Not Detected (Not Detect); Enteropathogenic E.coli Not Detected (Not Detect); Enterotoxigenic E.coli It/st Not Detected (Not Detect); Giardia lamblia Not Detected (Not Detect); Norovirus GI/GII Not Detected (Not Detect); Plesiomonsa shigelloides Not Detected (Not Detect); Rotavirus A Not Detected (Not Detect); Salmonella Not Detected (Not Detect); Shiga-like toxin-prod E.coli Not Detected (Not Detect); Shigella/Enteroinvasive E.coli Not Detected (Not Detect); Vibrio Not Detected (Not Detect); Vibrio cholerae Not Detected (Not Detect); Yersinia enterocolitica Not Detected (Not Detect)
[2019-02-21 13:41] LABS: Campylobacter Not Detected (Not Detect)
== END 2019-02-20 11:54 | disposition home or self-care (01) ==
PROVIDERS: PCP Internal Medicine; Visit Provider Specialist
PROC: 0DJ08ZZ Inspection of Upper Intestinal Tract, Via Natural or Artificial Opening Endoscopic (ICD-10-PCS; CPT 45380; principal; 2019-02-20 09:45)
PROC: 0DJD8ZZ Inspection of Lower Intestinal Tract, Via Natural or Artificial Opening Endoscopic (ICD-10-PCS; CPT 45378; 2019-02-20 09:45)
DX: K52.9 Noninfective gastroenteritis and colitis, unspecified (principal); Z21 Asymptomatic human immunodeficiency virus [HIV] infection status; K64.8 Other hemorrhoids; E78.5 Hyperlipidemia, unspecified; G20 Parkinson's disease; K22.70 Barrett's esophagus without dysplasia
CPT/HCPCS: 45380; 43239; 87045; 87046; 87101; 87177; 87206; 87507; 87899; 99152; 99153; J1200; J2250; J3010

== ENCOUNTER → 2019-03-18 08:35 | Outpatient (CLI) | payer MEDICARE, MEDICAID, SELFPAY ==
[2019-03-18 08:59] LABS: RBC Urine None Seen (0-5/HPF)
[2019-03-18 09:53] LABS: Appearance Urine UA CLEAR; Bilirubin Urine UA NEGATIVE (NEGATIVE); Color Urine UA YELLOW; Glucose Urine UA NEGATIVE (Negative); Ketones Urine UA NEGATIVE (NEGATIVE); Leukocyte Esterase Urine UA NEGATIVE (NEGATIVE); Nitrite Urine UA NEGATIVE (Negative); Occult Blood Urine UA NEGATIVE (Negative); Protein Urine UA NEGATIVE (Negative); Urobilinogen Urine UA 0.2 E.U./dL (0.2)
[2019-03-18 10:27] LABS: pH Urine UA 6.5 (4.5-8.0)
[2019-03-18 10:28] LABS: Hyaline Casts Urine 1-5/LPF; Squamous Epithelial Cell Urine 0-1 /HPF (0-5/HPF); Uric Acid Crystals Urine Moderate; WBC Urine 1-5/HPF (0-5/HPF)
[2019-03-18 10:29] LABS: Bacteria Urine Few (2-10)
== END ==
PROVIDERS: PCP Internal Medicine; Visit Provider Internal Medicine
DX: R30.0 Dysuria (principal); E30.0 Delayed puberty
CPT/HCPCS: 81001; 87086; 87102

== ENCOUNTER → 2019-05-05 10:53 | Outpatient (CLI) | payer MEDICARE, MEDICAID, SELFPAY | PROVIDERS: PCP Internal Medicine; Visit Provider Family Medicine | DX: R30.0 Dysuria (principal); R50.9 Fever, unspecified | CPT/HCPCS: 87086 ==

== ENCOUNTER → 2020-09-24 09:11 | Outpatient (CLI) | payer MEDICARE, MEDICAID, SELFPAY ==
[2020-09-24] MEDS: COVID-19 VACC, Ad26(JANSSEN)/PF 0.5 ML IM (09:22)
== END ==
PROVIDERS: PCP Family Medicine; Visit Provider Internal Medicine
DX: Z23 Encounter for immunization (principal)
CPT/HCPCS: 0031A; 91303